=== PATIENT | male | born 1970 | race Caucasian/White ===

== ENCOUNTER 2021-05-20 07:58 | Emergency (ER) | payer SELFPAY ==
[2021-05-20] MEDS ORDERED: Lidocaine 1% w/Epinephrine 1:100K 20 ML VIAL ONE (09:08)
[2021-05-20] MEDS ORDERED: Bacitracin 1 PK ONE (09:25)
== END 2021-05-20 09:37 | disposition home or self-care (01) ==
LOC: BURERS 07:58
DX: L02.31 Cutaneous abscess of buttock (principal); L03.317 Cellulitis of buttock; I25.10 Atherosclerotic heart disease of native coronary artery without angina pectoris; I25.2 Old myocardial infarction; Z86.73 Personal history of transient ischemic attack (TIA), and cerebral infarction without residual deficits; F17.210 Nicotine dependence, cigarettes, uncomplicated
CPT/HCPCS: 10060

== ENCOUNTER 2021-05-22 10:49 | Emergency (ER) | payer SELFPAY | END 2021-05-22 11:24 | disposition home or self-care (01) | LOC: BURERS 10:49 | DX: Z48.01 Encounter for change or removal of surgical wound dressing (principal); I25.10 Atherosclerotic heart disease of native coronary artery without angina pectoris; I25.2 Old myocardial infarction; F17.210 Nicotine dependence, cigarettes, uncomplicated; Z86.73 Personal history of transient ischemic attack (TIA), and cerebral infarction without residual deficits | CPT/HCPCS: 99282 ==